=== PATIENT | male | born 1995 | race Caucasian/White ===

== ENCOUNTER 2018-02-27 19:00 | Emergency (ER) | payer OTHER ==
[2018-02-27 21:27] LABS: ABSOLUTE EOSINOPHILS # (AUTO) 0.2 10^3/uL (0.0-0.6); ABSOLUTE LYMPHOCYTES (AUTO) 2.5 10^3/uL (0.5-4.7); ABSOLUTE NEUT (AUTO) 8.9 10^3/uL (1.7-8.2); BASOPHILS % (AUTO) 0.3 % (0-2); EOSINOPHILS % (AUTO) 1.5 % (0-6); HEMATOCRIT 41.8 % (37.9-51.0); HEMOGLOBIN 14.3 g/dL (13.5-17.0); LYMPHOCYTES % (AUTO) 19.8 % (13-45); MEAN CORPUSCULAR HEMOGLOBIN 30.3 pg (27.0-33.4); MEAN CORPUSCULAR HGB CONC 34.3 g/dL (32.0-36.0); MEAN CORPUSCULAR VOLUME 89 fl (80-97); PLATELET COUNT 219 10^3/uL (150-450); RED BLOOD COUNT 4.72 10^6/uL (4.35-5.55); RED CELL DISTRIBUTION WIDTH 13.4 % (11.5-14.0); SEGMENTED NEUTROPHILS % (AUTO) 70.4 % (42-78); TOTAL CELLS COUNTED % (AUTO) 100 %; WHITE BLOOD COUNT 12.6 10^3/uL (4.0-10.5)
[2018-02-27 21:39] LABS: ANION GAP 12 (5-19); BLOOD UREA NITROGEN 9 mg/dL (7-20); CALCIUM 9.8 mg/dL (8.4-10.2); CARBON DIOXIDE 28 mmol/L (22-30); CHLORIDE 103 mmol/L (98-107); GLUCOSE 88 mg/dL (75-110); POTASSIUM 3.5 mmol/L (3.6-5.0); SODIUM 142.6 mmol/L (137-145)
--- NOTE | 2018-02-27 22:18 | ER Document Report ---
ED General - General Chief Complaint: Black/Tarry Stools Stated Complaint: BLACK STOOLS Time Seen by Provider: 02/27/18 20:50 TRAVEL OUTSIDE OF THE [place] IN LAST 30 DAYS: No - HPI Notes: 22-year-old male states he has noted black stools for the past 2 days. Denies any bright red blood or clots. Denies any rectal pain. He reports some abdominal "pressure" but no pain. Denies similar symptoms in the past. Had a hemorrhoid in the past that did not cause any pain. Denies nausea, vomiting or fever. No family history of colon cancer. No excessive NSAID use. Does smoke and use a lot of caffeine. No rectal trauma. Denies any recent iron use or Pepto-Bismol. - Related Data Allergies/Adverse Reactions: No Known Allergies Allergy (Unverified 02/27/18 19:00) Past Medical History - Social History Smoking Status: Current Every Day Smoker Frequency of alcohol use: Social Family History: Reviewed & Not Pertinent Patient has suicidal ideation: No Patient has homicidal ideation: No Renal/ Medical History: Denies: Hx Peritoneal Dialysis Review of Systems - Review of Systems Notes: Constitutional: Negative for fever. HENT: Negative for sore throat. Eyes: Negative for visual changes. Cardiovascular: Negative for chest pain. Respiratory: Negative for shortness of breath. Gastrointestinal: Positive for abdominal pressure, negative for vomiting or diarrhea. Positive for dark stools Genitourinary: Negative for dysuria. Musculoskeletal: Negative for back pain. Skin: Negative for rash. Neurological: Negative for headaches, weakness or numbness. 10 point ROS negative except as marked above and in HPI. Physical Exam - Vital signs Vitals: Temp Pulse Resp BP Pulse Ox 98.1 F 93 16 132/83 H 100 02/27/18 19:04 02/27/18 19:04 02/27/18 19:04 02/27/18 19:04 02/27/18 19:04 - Notes Notes: PHYSICAL EXAMINATION: GENERAL: Well-appearing, well-nourished and in no acute distress. HEAD: Atraumatic, normocephalic. EYES: Pupils equal round and reactive to light, extraocular movements intact, conjunctiva are normal. ENT: nares patent, oropharynx clear without exudates. Moist mucous membranes. NECK: Normal range of motion, supple without lymphadenopathy LUNGS: Breath sounds clear to auscultation bilaterally and equal. No wheezes rales or rhonchi. HEART: Regular rate and rhythm, no chest wall tenderness ABDOMEN: Soft, nontender, normoactive bowel sounds. No guarding, no rebound. No masses appreciated. EXTREMITIES: Normal range of motion, no pitting or edema. No cyanosis. NEUROLOGICAL: Cranial nerves grossly intact. Normal speech, normal gait. Normal sensory and motor exams. PSYCH: Normal mood, normal affect. SKIN: Warm, Dry, normal turgor, no rashes or lesions noted. - Rectal Tenderness: No Stool: Heme negative Hemorrhoids: None Course - Re-evaluation Re-evalutation: 02/27/18 22:58 Labs unremarkable. Unremarkable rectal exam was negative occult blood. Will prescribe Nexium. Advised GI follow-up. At this time will discharge with return precautions and follow-up recommendations. Verbal discharge instructions given a the bedside and opportunity for questions given. Medication warnings reviewed. Patient is in agreement with this plan and has verbalized understanding of return precautions and the need for primary care follow-up in the next 24-72 hours. Voice dictation software was used. Chart was reviewed, but errors may exist. - Vital Signs Vital signs: Temp Pulse Resp BP Pulse Ox 98.1 F 93 16 132/83 H 100 02/27/18 19:04 02/27/18 19:04 02/27/18 19:04 02/27/18 19:04 02/27/18 19:04 - Laboratory Result Diagrams: 02/27/18 21:11 02/27/18 21:11 Laboratory results interpreted by me: 02/27/18 02/27/18 21:11 21:11 WBC 12.6 H Absolute Neutrophils 8.9 H Potassium 3.5 L Discharge - Discharge Clinical Impression: Dark stools Condition: Stable Disposition: HOME, SELF-CARE Instructions: Rectal Bleeding, Unclear Cause ([facility]) Additional Instructions: Avoid excessive caffeine, NSAIDs, and stop smoking. Follow-up with GI for further evaluation. Return for any worsening or concerning symptoms. Prescriptions: Esomeprazole Mag Trihydrate [Nexium] 40 mg PO DAILY #20 capsule.dr Referrals: ALEXANDRO KRAFT MD [ACTIVE STAFF] - Follow up as needed MERCEDES SCHILLING MD [ACTIVE STAFF] - Follow up in 3-5 days
[2018-02-27 23:20] VITALS: BP 118/62
== END 2018-02-27 23:19 | disposition home or self-care (01) ==
LOC: ER 19:00
DX: R19.5 Other fecal abnormalities (principal); F17.200 Nicotine dependence, unspecified, uncomplicated
CPT/HCPCS: 36415; 80048; 82272; 85025; 99283